=== PATIENT | female | born 1995 ===

== ENCOUNTER → 2018-04-01 | Outpatient (CLI) | payer OTHER ==
[~2018-04-01] MED LIST: [UNRECOGNIZED DRUG - CODE] PO
[2018-04-01 14:14] LABS: PLATELET COUNT, AUTOMATED 232 K/uL (150-450)
--- NOTE | 2018-04-02 16:35 | EKG ---
FACILITY: [facility] PATIENT NAME: ONESIMO JOHNS : [id number] MR: [id number] V: [id number] EXAM DATE: ORDERING PHYSICIAN: CAESAR MARIANO TECHNOLOGIST: JEIMY Test Reason : Blood Pressure : / mmHG Vent. Rate : 077 BPM Atrial Rate : 077 BPM P-R Int : 152 ms QRS Dur : 068 ms QT Int : 374 ms P-R-T Axes : 067 064 063 degrees QTc Int : 423 ms Normal sinus rhythm with sinus arrhythmia Normal ECG No previous ECGs available Referred By: YOUNG Confirmed By:
== END ==
LOC: LAB 13:01
PROVIDERS: ATTEND Emergency Medicine
DX: T67.1XXA Heat syncope, initial encounter (principal)
CPT/HCPCS: 36415; 81256; 82040; 82247; 82310; 82374; 82435; 82565; 82728; 82947; 83540; 83550; 83880; 84075; 84132; 84146; 84155; 84295; 84443; 84450; 84460; 84520; 84703; 85025; 85379

== ENCOUNTER → 2018-04-14 | Outpatient (CLI) | payer OTHER ==
--- NOTE | 2018-04-15 15:10 | RT HOLTER TEST ---
FACILITY: [facility] PATIENT NAME: ONESIMO JOHNS : [id number] MR: [id number] V: [id number] EXAM DATE: ORDERING PHYSICIAN: CHAGO VIDAL TECHNOLOGIST: ROXANNA Hook-up date: 2018-04-14 13:23:00 Duration: 24:04:00 Test Indications: SYNCOPE Medications: N/A [id number] QRS complexes 1 Ventricular ectopics which represent <1 % of total QRS comp. 1 Supraventricular ectopics which represent <1 % of total QRS comp. * Paced QRS complexes which represent % of total QRS comp. VENTRICULAR ECTOPY 1 Isolated 0 Bigeminal Cycles 0 Couplets 0 Runs 0 Beats in Runs * Beats LONGEST at * BPM at :: -- * Beats FASTEST at * BPM at :: -- SUPRAVENTRICULAR ECTOPY 1 Isolated 0 Couplets 0 Runs 0 Beats in Runs * Beats LONGEST at * BPM at :: -- * Beats FASTEST at * BPM at :: -- HEART RATES 57 MIN at 02:50:04 2018-04-15 87 AVG 169 MAX at 13:42:08 2018-04-14 LONGEST RR 1.472 secs at 19:54:41 2018-04-14 S-T LEVELS Channel 1 -12.800 mm MIN at 13:23:00 2018-04-14 -12.800 mm MAX at 13:23:00 2018-04-14 Channel 2 -12.800 mm MIN at 13:23:00 2018-04-14 -12.800 mm MAX at 13:23:00 2018-04-14 Channel 3 -12.800 mm MIN at 13:23:00 2018-04-14 -12.800 mm MAX at 13:23:00 2018-04-14 Very rare ventricular and supraventricular ectopy. No couplets, triplets, or runs were recorded. It does appear there may have been a few blocked premature atrial complexes. Two were noted at 1954hr s and 2020hrs. No pauses were recorded. Confirmed by MELINDA MIGUEL ([id number]) on 04/15/2018 3:09:54 PM Referred By: Overread By: MELINDA MIGUEL
== END ==
LOC: RESP 01:28
PROVIDERS: ATTEND Emergency Medicine
DX: R55 Syncope and collapse (principal)
CPT/HCPCS: 93225; 93226

== ENCOUNTER → 2018-04-23 | Outpatient (CLI) | payer OTHER | LOC: US 04:16 | PROVIDERS: ATTEND Emergency Medicine | DX: Q21.0 Ventricular septal defect (principal) | CPT/HCPCS: 93306 ==

== ENCOUNTER → 2018-05-13 | Outpatient (CLI) | payer OTHER ==
[~2018-05-13] MED LIST changes: +GADOBENATE 529MG/1ML 15ML VIAL IVP ONE; +LEVO750T44 PO
--- NOTE | 2018-05-13 08:58 | RADIOLOGY IMAGING REPORT ---
FACILITY: [facility] PATIENT NAME: Tatiana Collier : 1995 MR: [id number] V: [id number] EXAM DATE: ORDERING PHYSICIAN: CHAGO VIDAL TECHNOLOGIST: Location: [facility] [place] Patient: Tatiana Collier : 1995 Visit/Account:[id number] Date of Sevice: 05/13/2018 Study: MRI of the brain without and with gadolinium contrast. Indication: Dizziness Comparison study: None Contrast used: 13mL MultiHance gadolinium contrast Technique: Multiplanar MRI sequences were obtained through the brain before and after the administrat ion of gadolinium contrast. The examination demonstrates no evidence of acute intracranial hemorrhage. There is no evidence of ex tra-axial collection or hydrocephalus. There is no abnormal signal identified within the brain parenchyma. The pituitary gland is unremarkable in appearance. There is no evidence of abnormality of the pineal gland. A diffusion-weighted sequence was performed and demonstrates no evidence of active ischemia. There is no evidence of active infarct The orbits are unremarkable. There is opacification of the left aspect of the sphenoid sinus. Following the administration of gadolinium contrast, there is no abnormal intracranial contrast enhan cement. IMPRESSION:Unremarkable MRI of the brain without and with intravenous contrast. Incidental note is made of opacification of the left aspect of the sphenoid sinus. Report Dictated By: Jeremias Kilpatrick at 05/13/2018 8:41 AM Report E-Signed By: Jeremias Kilpatrick at 05/13/2018 8:54 AM WSN:[id number]
== END ==
LOC: MRI 00:16
PROVIDERS: ATTEND Emergency Medicine
DX: R42 Dizziness and giddiness (principal)
CPT/HCPCS: 70553; A9577

== ENCOUNTER 2018-05-24 08:30 | Outpatient (RCR) | payer OTHER ==
[~2018-05-24 08:30] MED LIST changes: -GADOBENATE 529MG/1ML 15ML VIAL IVP ONE
[2018-05-24 08:38] VITALS: BP 116/74
[2018-05-24 09:21] LABS: PLATELET COUNT, AUTOMATED 220 K/uL (150-450)
--- NOTE | 2018-05-24 10:40 | [facility] ONCOLOGY NOTE ---
EVENT DATE: May 24, 2018 CHIEF COMPLAINT/REASON FOR VISIT Ms. Collier is a very pleasant 22-year old female with C282Y heterozygous mutation for hemochromatosis gene that presents for consultation. HISTORY OF PRESENT ILLNESS Tatiana presents for initial consultation. Her workup by Dr. Waite has been extensive as she has had four episodes of syncope since late January 2018. [place] in [place] to [place] in the summer of 2017 and was fully acclimated to the altitude before these episodes occurred. She does have a prodrome where she feels very weak and feels her vision is losing color before having syncope with a fall and waking up on the floor. Thankfully, she has not had extensive trauma yet. Extensive workup including a Holter monitor has been and an echo and this has been unrevealing thus far. These episodes are happening approximately once a month and I am concerned about the possibility of an intermittent arrhythmia. Her heart exam is completely normal today. An event recorder over 30 days may be required but deferred to Dr. Waite in consideration of cardiology consultation. During this workup, it was noted that her iron was elevated, which led to the hemochromatosis testing. Her ferritin is 151. After these episodes began in late January, she missed approximately three menstrual periods and then has had two or three more frequent periods in the last few weeks. She is due to have her period again next week. I believe this is her body's natural response to the increased stress and trauma that she has been through recently, which is why she has skipped these cycles. Thus, I believe her March ferritin is likely a high reading for her. Also in light of the syncope, I hesitate to initiate phlebotomy at this time as I do not want to exacerbate these syncopal episodes. We had an extensive discussion about hereditary hemochromatosis and how it should be monitored. With a ferritin of 151, I do not expect to have any end organ damage. This is consistent with her echocardiogram, which I did not see any thickening or other issues. PAST MEDICAL HISTORY 1. Anxiety and depression. 2. Syncopal episodes x4, beginning in late 2017. 3. Heterozygous C282Y mutation for hereditary hemochromatosis, baseline ferritin of 151. 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 She works at the [employer] as well. FAMILY HISTORY Denies any significant family history. REVIEW OF SYSTEMS CONSTITUTIONAL: No fevers, chills, weight change. The episodes of syncope have occurred twice in the shower and once at dance class. HEENT: No headache or vision changes. NEUROLOGIC: No focal deficits, loss of bowel or bladder after these episodes. CARDIOVASCULAR: No chest pain, dyspnea on exertion or edema. She has occasional point tenderness under the ribs near the bottom of her rib cage. These are not associated with the episodes. RESPIRATORY: No shortness of breath, wheeze or cough. GI: No nausea or vomiting. : No dysuria or hematuria. MUSCULOSKELETAL: No weakness or joint pain. PSYCHIATRIC: Prior history of anxiety and depression. ENDOCRINE: No heat or cold intolerance. SKIN: No concerning rash or lesions. Remainder of 14-point review of systems otherwise negative. PHYSICAL EXAMINATION VITAL SIGNS: Blood pressure 116/74, pulse 72, respiratory rate 16, temperature 98.8 Fahrenheit, oxygen saturation 96% on room air. Weight 64.5 kg. Pain 0/10. Fatigue 0/10. GENERAL: Stable condition, resting comfortably in chair. HEENT: Normocephalic, atraumatic. CARDIOVASCULAR: Regular rate and rhythm. I auscultated her heart for some time and I did not appreciate any extra beats or abnormalities today. Normal S1 and S2. No extra sounds or murmurs. LUNGS: Clear to auscultation bilaterally. ABDOMEN: Deferred. EXTREMITIES: No clubbing, cyanosis or edema. SKIN: No concerning rashes. Remainder of physical exam otherwise unremarkable. IMPRESSION/REPORT/PLAN Ms. Collier is a very pleasant, 22-year old female with the followin. Heterozygous C282Y mutation for hereditary hemochromatosis. Her baseline ferritin is 151 but this was after she skipped approximately two periods. I anticipate this is an unusually high ferritin level for her. In light of the recent syncope, I do not believe we should initiate phlebotomy. I would like to repeat her ferritin level sometime this week month as she has started to have periods again. 2. Syncopal episodes x4. I believe she needs formal cardiology consultation and consideration of an event recorder over 30 days. Given her history, I am concerned that she is having intermittent heart block or arrhythmia and a more extensive cardiac evaluation should be considered. Defer to Dr. Waite. I answered all of her many questions today. Billing: New patient level 4. Total time 45 minutes, counseling time 30. MTDD
[2018-06-02] MEDS ORDERED: MISO200T59 PO (10:03)
[2018-06-02] MEDS ORDERED: [UNRECOGNIZED DRUG - CODE] PO (10:08)
== END 2018-07-02 09:04 | disposition home or self-care (01) ==
LOC: ONC 08:30
PROVIDERS: ATTEND Internal Medicine
DX: E83.110 Hereditary hemochromatosis (principal); R55 Syncope and collapse
CPT/HCPCS: 36415; 82728; 83540; 83550; 85025; 99202

== ENCOUNTER 2018-08-02 14:39 | Outpatient (RCR) | payer OTHER ==
[~2018-08-02 14:39] MED LIST changes: +MISO200T59 PO
[2018-08-02 16:21] VITALS: BP 116/79
[2018-08-02 16:41] LABS: PLATELET COUNT, AUTOMATED 220 K/uL (150-450)
== END 2018-08-23 11:40 | disposition home or self-care (01) ==
LOC: ONC 14:39
PROVIDERS: ATTEND Internal Medicine
DX: Z14.8 Genetic carrier of other disease (principal)
CPT/HCPCS: 36415; 82728; 83540; 83550; 85025

== ENCOUNTER → 2018-10-12 | Outpatient (CLI) | payer OTHER ==
[2018-10-12 14:13] LABS: PLATELET COUNT, AUTOMATED 253 K/uL (150-450)
== END ==
LOC: LAB 08:29
PROVIDERS: ATTEND Student in an Organized Health Care Education/Training Program
DX: Z34.81 Encounter for supervision of other normal pregnancy, first trimester (principal); R82.79 Other abnormal findings on microbiological examination of urine
CPT/HCPCS: 36415; 81001; 84702; 85025; 86592; 86703; 86762; 86850; 86900; 86901; 87088; 87340